=== PATIENT | male | born 1960 | race Caucasian/White ===

== ENCOUNTER → 2024-10-18 | Outpatient (CLI) | payer MEDICARE, OTHER ==
--- NOTE | 2024-10-18 16:51 | US ---
EXAMINATION TYPE: US arterial LE single level DATE OF EXAM: 10/18/2024 4:19 PM COMPARISONS: None. CLINICAL INDICATION: Male, 64 years old with history of I73.9 PERIPHERAL VASCULAR DISEASE, UNSPECIFIE D; PVD TECHNIQUE: Systolic pressures were taken of the upper and lower extremity arteries with ankle-brachia l indices and toe brachial indices calculated bilaterally. History of: Smoker: No Hypertension: Yes Diabetic: Yes Hyperlipidemia: Yes TIA/CVA: No Previous Vascular Surgery: No CAD: No PA: No Vascular Ulcers: No Claudication: No Gangrene: No FINDINGS: Doppler Waveforms: Right: Multiphasic Left: Multiphasic Pulse Volume Recording: Pressure Gradients: Brachial Artery systolic pressure: Right: 151 Left: 154 Posterior Tibial artery systolic pressure: Right: 201 Left: 195 Dorsalis Pedis artery systolic pressure: Right: 176 Left: 180 Toe artery systolic pressure: Right: 114 Left: 114 Ankle-Brachial Indices: Right: 1.3 Left: 1.27 Toe Brachial Indices: Right: 0.74 Left: 0.74 (Normal > 0.6; Mild 0.35 - 0.59, Moderate 0.12 - 0.34, Severe <0.12) IMPRESSION: GENE: Right: Normal 0.9 - 1.4, Recommendation: None Left: Normal 0.9 - 1.4, Recommendation: None [facility], , 10/18/2024 4:48 PM
== END | disposition home or self-care (01) ==
LOC: RADUSWWP 15:58
PROVIDERS: ATTEND Internal Medicine
DX: I73.9 Peripheral vascular disease, unspecified (principal); E11.51 Type 2 diabetes mellitus with diabetic peripheral angiopathy without gangrene
CPT/HCPCS: 93922

== ENCOUNTER → 2024-11-23 | Outpatient (CLI) | payer MEDICARE, OTHER ==
[2024-11-23 09:08] LABS: African American GFR (CKD) >90 (>60 ml/min/1.73 sqM); Blood Urea Nitrogen 17 mg/dL (9-20); Non-African American GFR(CKD) >90 (>60 ml/min/1.73 sqM)
--- NOTE | 2024-11-23 12:43 | CT ---
EXAMINATION TYPE: CT angio abdomen pelvis CT DLP: 1409 mGycm, Automated exposure control for dose reduction was used. DATE OF EXAM: 11/23/2024 11:16 AM COMPARISON:None CLINICAL INDICATION:Male, 64 years old with history of I72.8 ANEURYSM OF OTHER SPECIFIED ARTERIES; Pe ripheral artery aneurysm TECHNIQUE: Multiple thin slice sub-millimeter images were obtained through the abdomen and pelvis bef ore and after administration of contrast. Patient was given Isovue 370, 100 cc intravenously. 3-D r econstructed images and maximum intensity projection images were obtained of the abdominal aorta and its branches. FINDINGS: CTA Abdomen and pelvis: The abdominal aorta does not demonstrate aneurysmal dilatation. No significa nt atherosclerotic calcification of the aorta and its branches.. The origins of the superior mesente grecia artery, renal arteries, inferior mesenteric artery, and celiac axis are patent. Left renal periph erally calcified saccular aneurysm measuring up to 1.8 cm near the hilum (series 9, image 81). This d emonstrates internal enhancement. Additional peripheral right renal artery saccular aneurysm measurin g up to 0.9 cm (series 12, image 91). The iliac vessels are normal in morphology. The bilateral comm on iliac, external iliac, and internal iliac arteries are widely patent. The bilateral common femoral arteries are widely patent. The bilateral visualized superficial and deep femoral arteries are widel y patent. VISCERA: The liver, spleen, adrenal glands, kidneys, pancreas, and gallbladder are not optimally enha nced due the arterial phase utilized. LIVER: Mildly enlarged measuring 19.1 cm in CC dimension. Couple punctate calcification within the in ferior right hepatic lobe. GALLBLADDER AND BILE DUCTS: Layering increased densities within the lumen consistent with gallstones are present. No biliary ductal dilatation. PANCREAS: Unremarkable. SPLEEN: Unremarkable. ADRENAL GLANDS: Unremarkable. KIDNEYS AND URETERS: No evidence of hydronephrosis or renal calculus. The kidneys enhance symmetrical ly. Left renal superior pole cortical subcentimeter cyst. No follow up recommended. PELVIS BLADDER: Unremarkable REPRODUCTIVE: Prominent prostate gland. ABDOMEN & PELVIS STOMACH AND BOWEL: Stomach and duodenum are unremarkablemild amount of stool present within the colon . No focal bowel wall thickening or surrounding inflammatory changes. The appendix is within normal l imits. No evidence of bowel obstruction. PERITONEUM: No evidence of pneumoperitoneum or free fluid. VASCULATURE: No evidence of aortic aneurysm. MUSCULOSKELETAL: No acute osseous abnormalities. DISH of the visualized lower thoracic spine. LYMPH NODES: No gross evidence for lymphadenopathy. SOFT TISSUE/ABDOMINAL WALL: Unremarkable LOWER CHEST: No significant findings. IMPRESSION: 1. No evidence of vascular occlusion or abdominal aortic aneurysm. 2. Bilateral renal artery patent saccular aneurysms. The left measures up to 1.8 cm and the right shaji sures up to 0.9 cm. [facility], , 11/23/2024 12:40 PM
== END | disposition home or self-care (01) ==
LOC: RADCTMAIN 08:23
PROVIDERS: ATTEND Internal Medicine
DX: I72.2 Aneurysm of renal artery (principal); I72.8 Aneurysm of other specified arteries
CPT/HCPCS: 82565; 84520; 36415; 74174; Q9967

== ENCOUNTER → 2024-11-24 | Outpatient (CLI) | payer MEDICARE, OTHER ==
[2024-11-24 15:13] VITALS: BP 161/93; PULSE 88; RESP 16; TEMP 98.1
--- NOTE | 2024-11-24 15:54 | P.SLEEP ---
History of Present Illness DATE: 11/24/2024 CONSULTATION/NEW PATIENT EVALUATION HISTORY OF PRESENT ILLNESS/SLEEP-WAKE EVALUATION: 64-year-old gentleman had be en evaluated in the sleep center for obstructive sleep apnea hypopnea syndrome. Patient has history of obstructive sleep apnea for about 20 years. He is on treatment with CPAP last sleep study done in 2023. CPAP unit about 8 months old. I checked CPAP unit. CPAP pressure is 9 cm of water. Usage is 96%, average 6.5 hours per night. Apnea hypopnea index is 1.1, which is normal. SLEEP SCHEDULE: Usually sleep schedule from 10 PM to 7 AM 7 days a week. FALLING ASLEEP: Patient has difficulties with falling asleep sometimes. DURING SLEEP: No snoring with CPAP. Patient wakes up from sleep up to 3 times with 1 episode of nocturia. No history of hypnogogical hallucinations, sleep paralysis, or cataplexy. DURING THE DAY/WAKE STATE: No significant sleepiness. [place] sleepiness scale is 2. Patient does not take naps. PAST MEDICAL HISTORY: Diabetes mellitus, hypothyroidism, hyperlipidemia. PAST SURGICAL HISTORY: Neck lift cosmetic procedure in May 2024. MEDICATIONS: Please see below. SOCIAL HISTORY: Please see below. FAMILY HISTORY: Please see below. REVIEW OF SYSTEMS: No snoring on CPAP, no sleepiness. No fevers. No double vision. No recent chest pain. No shortness of breath. No abdominal pain. No bleeding episodes. No blood in urine. No seizure episodes. PHYSICAL EXAMINATION: GENERAL: A pleasant patient without any distress. VITAL SIGNS:, Weight 177 pounds, BMI 28.5. HEENT: PERRLA, EOMI. Evaluation of oropharynx showed tongue protrudes midline, low position of soft palate Mallampati 34. NECK: Supple. No JVD. Thyroid is not palpable. 15.5 inches in circumference. LUNGS: Clear to percussion and to auscultation. Good air exchange. No wheezing or rhonchi. HEART: S1, S2 regular. No murmurs, gallops or rubs. ABDOMEN: Soft and nontender. Bowel sounds are present. No organomegaly appreciated. EXTREMITIES: No clubbing or cyanosis. QUALITY ASSURANCE ADVISOR: Awake, alert, and oriented x3. Cranial nerves 2 to 7 intact. There is no fasciculation or atrophy noted. No focal deficits observed. ASSESSMENT: 1. Obstructive sleep apnea hypopnea syndrome for 20 years. Patient continued to use CPAP equipment every night for the whole night. Normal apnea hypopnea index reading from CPAP unit. Low position of soft palate Mallampati 34. 2. Diabetes mellitus. Hemoglobin A1c according to patient 7.4. 3. Hypothyroidism. 4. Hyperlipidemia. 5 status post neck lift cosmetic procedure in May 2024. PLAN: 1. We will get results of previous sleep studies. 2. Patient will continue to use CPAP equipment every night for the whole night. 3. Preferable position during sleep on the side. 4. No driving if patient feels any sleepiness. Patient is aware of civil and criminal liability for unsafe driving. 5. Sleep hygiene with regular sleep time for at least 7.5-8 hours. 6. Watching weight. 7. Prescription for all necessary CPAP supplies including nasal mask, tubing, filters. 8. Follow-up visit in 8 months or earlier if patient has any problems Thank you very much for referring this patient for consultation. Sincerely, Edward Banegas MD, PhD, FAASM. 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 History of Any Multi-Drug Resistant Organisms: None Reported Additional Past Surgical History / Comment(s): neck lift Past Anesthesia/Blood Transfusion Reactions: No Reported Reaction Past Psychological History: No Psychological Hx Reported Smoking Status: Never smoker Past Alcohol Use History: Rare Past Drug Use History: Marijuana - Past Family History Mother Family Medical History: Diabetes Mellitus Additional Family Medical History / Comment(s): anemia, headaches Father Family Medical History: Diabetes Mellitus Medications and Allergies Home Medications Medication Instructions Recorded Confirmed Type Amitriptyline HCl [Elavil] 100 mg PO DAILY 11/24/24 11/24/24 History Atorvastatin [Lipitor] 20 mg PO DAILY 11/24/24 11/24/24 History Benazepril/Hydrochlorothiazide 10 mg PO DAILY 11/24/24 11/24/24 History [Benazepril-Hctz 10-12.5 mg Tab] Glimepiride 4 mg PO DAILY 11/24/24 11/24/24 History Levothyroxine Sodium [Synthroid] 75 mcg PO DAILY 11/24/24 11/24/24 History Omeprazole 40 mg PO DAILY 11/24/24 11/24/24 History Semaglutide [Rybelsus] 14 mg PO DAILY 11/24/24 11/24/24 History ZOLMitriptan [Zomig] 5 mg PO DAILY 11/24/24 11/24/24 History amLODIPine [Norvasc] 5 mg PO DAILY 11/24/24 11/24/24 History metFORMIN HCL 1,000 mg PO DAILY 11/24/24 11/24/24 History nadoloL 40 mg PO DAILY 11/24/24 11/24/24 History Physical Exam Vitals: Vital Signs Temp Pulse Resp BP Pulse Ox 11/24/24 15:12 98.1 F 88 16 161/93 96 Intake and Output 11/24/24 11/24/24 11/24/24 06:59 14:59 22:59 Other: Weight 80.286 kg Sleep Note - Sleep Data ESS Total: 2 - Sleep Note Sleep Note: Temperature: 98.1 F Pulse Rate: 88 Respiratory Rate: 16 Blood Pressure: 161/93 SpO2: 96 Height: 5 ft 6 in Weight: 80.286 kg BMI: Neck Circumference: 15.5
== END | disposition home or self-care (01) ==
LOC: 3 N SLEEP 14:42
PROVIDERS: ATTEND Internal Medicine
DX: G47.33 Obstructive sleep apnea (adult) (pediatric) (principal); E11.9 Type 2 diabetes mellitus without complications; E78.5 Hyperlipidemia, unspecified; E03.9 Hypothyroidism, unspecified; Z99.89 Dependence on other enabling machines and devices; Z98.890 Other specified postprocedural states
CPT/HCPCS: 99211

== ENCOUNTER → 2024-12-09 | Outpatient (CLI) | payer MEDICARE ==
--- NOTE | 2024-12-09 19:06 | MR ---
INDICATION: Patient age:Male; 64 years old; Reason for study: S12.9XXA FRACTURE OF NECK; [facility]. COMPARISON: None available. TECHNIQUE: Multi planar, multi sequence imaging was performed of the cervical spine. No Gadolinium wa s given. FINDINGS: Alignment: The cervical vertebral bodies have preserved heights. Degenerative grade 1 anterolisthesis of C7 on T1. Bones: Diffusely heterogenous bone marrow signal. Type II Modic changes involving the endplates aroun d the C6-C7 disc. Multilevel anterior osteophytosis. No abnormal STIR signal to suggest bone marrow edema for acute fracture. Cord: The spinal cord is unremarkable with regards to their signal intensity and morphology. Discs: Multilevel disc desiccation is present. C2-C3: No significant disc pathology. The spinal canal is patent. No neural foraminal stenosis. C3-C4: No significant disc pathology. The spinal canal is patent. No neural foraminal stenosis. C4-C5: No significant disc pathology. The spinal canal is patent. No neural foraminal stenosis. C5-C6: Minimal broad-based disc bulge without significant effacement of the anterior thecal sac. No c entral canal stenosis. No neural foraminal stenosis. C6-C7: Posterior disc osteophyte complex with minimal effacement of the anterior thecal sac. No signi ficant central canal stenosis. Uncovertebral joint hypertrophy. The right neural foramen is patent. M ild left neural foraminal stenosis. C7-T1: No significant disc pathology. The spinal canal is patent. No neural foraminal stenosis. Other: None. IMPRESSION: 1. No evidence for disc herniation or significant spinal canal stenosis. 2. Mild multilevel disc degeneration of the cervical spine. 3. No evidence for acute cervical spine fracture. [facility], , 12/09/2024 7:03 PM
== END | disposition home or self-care (01) ==
LOC: RADMRIMAIN 16:19
PROVIDERS: ATTEND Internal Medicine
DX: S12.9XXA Fracture of neck, unspecified, initial encounter (principal); M50.322 Other cervical disc degeneration at C5-C6 level; X58.XXXA Exposure to other specified factors, initial encounter
CPT/HCPCS: 72141

== ENCOUNTER → 2025-02-04 | Outpatient (CLI) | payer MEDICARE ==
--- NOTE | 2025-02-04 12:12 | XR ---
EXAMINATION TYPE: XR KUB DATE OF EXAM: 02/04/2025 11:48 AM COMPARISON: None CLINICAL INDICATION: Male, 64 years old with history of M54.9 back pain; [facility] TECHNIQUE: One radiographic view of the abdomen was obtained. FINDINGS: The bowel gas pattern is nonspecific without dilated loops of small or large bowel. . Fecal material and gas are demonstrated throughout the colon and rectum. There is no evidence for organome sita or pneumoperitoneum. No acute osseous process. No abnormal calcifications are present. IMPRESSION: Nonspecific bowel gas pattern without radiographic evidence for acute process. [facility], , 02/04/2025 12:09 PM
== END | disposition home or self-care (01) ==
LOC: RADXRMAIN 11:34
PROVIDERS: ATTEND Internal Medicine
DX: M54.9 Dorsalgia, unspecified (principal)
CPT/HCPCS: 74018